=== PATIENT | male | born 1965 | race Caucasian/White ===

== ENCOUNTER 2016-12-27 13:41 | Inpatient (IN) | payer BC ==
[~2016-12-27] VITALS: Ht 175.3 cm; Wt 115.9 kg
--- NOTE | ~2016-12-27 | OP ---
PATIENT NAME: NIYAH EDUARDO MEDICAL RECORD: [id number] :69 LOCATION:[facility]1220 ADMISSION DATE:12/27/16 SURGEON: AFTAB SOW MD DATE OF OPERATION: 12/28/2016 PREOPERATIVE DIAGNOSIS: Ventral hernia, incarcerated. POSTOPERATIVE DIAGNOSES: 1. Incarcerated umbilical hernia. 2. Incarcerated ventral hernia. PROCEDURE: Laparoscopic incarcerated ventral and umbilical hernia repairs with mesh. This was the Ventralight ST mesh with the Echo PS positioning system. SURGEON: Aftab Sow MD LOADER ENGINEER: None. BLOOD LOSS: Minimal. ANESTHESIA: General. COMPLICATIONS: None. The risks, possible complications, and alternatives to the procedure were explained to the patient. He elects to proceed. The discussion specifically included, but was not limited to, bleeding requiring emergency reoperation, infection, intestinal injury. OPERATIVE COURSE: The patient was conveyed to the operating room electively on 12/28/2016. General anesthesia was induced by the anesthesia staff. The abdomen was sterilely prepped and draped. A skin incision was accomplished in the left upper quadrant. A Veress needle was inserted. CO2 insufflation was begun. Once a sufficient pneumoperitoneum had been achieved, a 12-mm trocar was inserted in the left upper quadrant. Under direct internal vision utilizing a television camera, a 5-mm trocar was inserted in the left side of the abdomen. Two 5-mm trocars were inserted in the right side of the abdomen. During insertion of the Veress needle and all trocars, there appeared to have been no injury to the bowels, any intraperitoneal or retroperitoneal structures. I took down the falciform ligament and also the anterior portion of the triangular ligament of the liver with the Harmonic scalpel. A prevesicular flap was created with the Harmonic scalpel as well. Intravenous methylene blue was given. I saw no evidence of methylene blue and therefore, no evidence of a bladder injury. I then cleaned some preperitoneal fat from around the hernia defects. The hernia defects were identified. The preperitoneal adipose tissue that was incarcerated within these hernias was reduced in its entirety. Some nonviable adipose tissue was placed within a bag retrieval device and was withdrawn through the 12-mm trocar site. The Ventralight ST mesh was then hydrated. It was rolled up and advanced down through the 12-mm trocar site. A small skin incision was accomplished between the 2 hernia defects. I advanced a laparoscopic suture grasper. I grasped the OPERATIVE REPORT [id number] NIYAH EDUARDO tail of the inflation device. I brought this out through the anterior abdominal wall. I cut the tail. It was attached to the inflation device and inflated. I positioned the mesh in the correct orientation. I then performed a circumferential tacking utilizing 2 different tackers including the SorbaFix tacker. Once I was satisfied with the repair, I reduced the Echo PS positioning system in its entirety. I irrigated and aspirated. There was no bleeding even at low pressure of 8. I pulled the omentum down over the small bowel to prevent a small-bowel obstruction from recurring. The 12-mm trocar site was closed with a single 0 Vicryl suture. The other trocars were removed. The skin incisions were closed with interrupted intracuticular 3-0 Vicryls. Sterile dressings were then applied. The patient was then extubated and conveyed to the post-anesthesia care unit where he was in stable condition. The size of the mesh used was 6 inches x 8 inches. TRANSINT:[id number] Voice Confirmation ID: [id number] DOCUMENT ID: [id number] AFTAB SOW MD CC: [id number] DICTATION DATE: 12/28/16 1356 COCOA BEAN ROASTER: 12/28/16 1718 [facility] [address] [place] [address]
[2016-12-27 14:37] LABS: BASOPHILS 0.2 % (0-2); EOSINOPHILS 2.3 % (0-7); HEMATOCRIT 55.4 % (42.0-54.0); IMMATURE GRANULOCYTES 0.4 % (0-5); LYMPHOCYTES 17.2 % (15-50); MCH 30.2 pg (26.0-34.0); MCHC 34.3 g/dL (31.0-37.0); MCV 87.9 fL (80.0-100.0); MONOCYTES 8.3 % (2-11); NEUTROPHILS 71.6 % (40-80); RDW 13.5 % (11.5-14.5); WBC 13.3 10x3/uL (4.8-10.8)
[2016-12-27 14:46] LABS: PLATELET COUNT 211 10x3/uL (130-400)
--- NOTE | 2016-12-27 20:52 | NUR ---
RECEIVED PT FROM ER VIA WHEELCHAIR TO ROOM 1220. INTRODUCED SELF. ROUTINE INITIAL ASSESSMENT AND HISTORY DONE. ADMITTING Dx: VENTRAL HERNIA. ORIENTED TO ROOM AND BED CONTROLS. PLAN OF CARE INITIATED.
[2016-12-27 20:57] VITALS: BP 136/78; Ht 175.3 cm; Wt 115.9 kg
--- NOTE | 2016-12-27 22:00 | NUR ---
DR SERRANO PAGED REGARDING DIET FOR PT TONIGHT BEFORE MIDNIGHT
--- NOTE | 2016-12-27 22:45 | NUR ---
DR SERRANO PAGED AGAIN
--- NOTE | 2016-12-27 23:05 | NUR ---
SALINE LOCK CONVERTED TO IV INFUSING NS AT 125 ML/HR PER MD ORDERS, SEE EMAR, VS OBTAINED, SCD'S APPLIED AND WORKIING PROPERLY, PT INFORMED THAT THE DOCTOR HAS NOT CALLED BACK REGARDING DIET, PT VERBALIZES UNDERSTANDING
[2016-12-27 23:06] VITALS: BP 129/76
--- NOTE | 2016-12-27 23:10 | NUR ---
CONSENTS SIGNED AND WITNESSED
--- NOTE | 2016-12-27 23:35 | NUR ---
PT INFORMED THAT I HAVE NOT HEARD BACK FROM THE DOCTOR YET, PT STATES "DARN, IF I KNEW THAT I WAS GOING TO HAVE SURGERY, I WOULD OF EATEN", I INFORMED PT THAT IF I HEAR BACK FROM HIM BEFORE MIDNIGHT, I WOULD LET HIM KNOW, PT VERBALIZES UNDERSTANDIUNG, PT DENIES NEEDS OR PAIN AT THIS TIME
[2016-12-28] VITALS (12 sets, daily range): BP systolic 111–147; BP diastolic 64–89
--- NOTE | 2016-12-28 00:24 | NUR ---
PT RESTING WITH EYES CLOSED, RESP QUIET, PT USING OWN CPAP MACHINE, NO DISTRESS NOTED, LEFT UNDISTURBED AT THIS TIME
--- NOTE | 2016-12-28 03:11 | NUR ---
PT RESTING WITH EYES CLOSED, RESP QUIET, PT USING OWN CPAP MACHINE, LEFT UNDISTURBED AT THIS TIME
--- NOTE | 2016-12-28 05:28 | NUR ---
PT RESTING WITH EYES CLOSED, AROUSES TO SOFT VERBAL STIMULATION, VS OBTAINED, PT DENIES PAIN OR NEED FOR NAVAL AIRCREWMAN AVIONICS, SCD'S CONTINUE ON AND WORKING PROPERLY, DENIES NEEDS AT THIS TIME
--- NOTE | 2016-12-28 07:30 | NUR ---
PT IS RECEIVED THIS AM LYING IN BED, RESTING. PT STATES THAT HE IS SUPPOSE TO GO TO SURGERY THIS AM FOR UMBILICAL HERNIA REPAIR. STATES DR DID NOT TELL HIM IF IT WOULD BE DONE LAPAROSCOPICALLY OR OPEN. CONSENTS HAVE BEEN SIGNED. GEN- AWAKE AND ALERT- LUNGS CLEAR. HEART- RRR. ABD- SOFT, NT, BS +. UNABLE TO PALPATE HERNIA DUE TO PT LYING DOWN. EXT- NO EDEMA. BEED IS LOW, SIDE RAILS UP X 2 AND CALL LIGHT IN REACH. IV NOTED LEFT HAND PATENT WITH NS INFUSING AT 125 CC/HR.
[2016-12-28 07:42] LABS: BASOPHILS 0.2 % (0-2); EOSINOPHILS 2.6 % (0-7); HEMATOCRIT 53.8 % (42.0-54.0); HEMOGLOBIN 18.1 g/dL (13.5-17.5); IMMATURE GRANULOCYTES 0.3 % (0-5); MCH 29.8 pg (26.0-34.0); MCHC 33.6 g/dL (31.0-37.0); MCV 88.5 fL (80.0-100.0); MONOCYTES 7.8 % (2-11); NEUTROPHILS 66.1 % (40-80); PLATELET COUNT 214 10x3/uL (130-400); RBC 6.08 10x6/uL (4.20-6.10); RDW 13.8 % (11.5-14.5); WBC 12.7 10x3/uL (4.8-10.8)
[2016-12-28 07:55] LABS: APTT 29.7 SECONDS (22.8-39.4); CALC OSMOLALITY 283 mosm/kg (275-300); CALCIUM 7.9 mg/dL (8.5-10.1); CARBON DIOXIDE 25.8 mmol/L (21.0-32.0); CHLORIDE - SERUM 106 mmol/L (98-107); CREATININE - SERUM 1.1 mg/dL (0.6-1.3); GLUCOSE 76 mg/dL (74-106); INR 0.99 (0.85-1.17); POTASSIUM - SERUM 3.9 mmol/L (3.5-5.1); SODIUM 142 mmol/L (136-145); UREA NITROGEN 17 mg/dL (7-18); eGFR NON AFRICAN AMERICAN 75 mL/min (90-120)
--- NOTE | 2016-12-28 09:00 | NUR ---
PT WAS GIVEN PREOP MEDS ORDERED.
--- NOTE | 2016-12-28 09:15 | NUR ---
SURGERY CAME AND GOT PT BY RYLEY. BELONGINGS WERE GATHERED AND PUT BEHIND THE NURSING DESK FOR HIS TO RECEIVER SETTER.
--- NOTE | 2016-12-28 13:45 | NUR ---
PT WAS RECEIVED FROM RECOVERY POST OP HERNIA REPAIR. HE IS DROWSY BUT EASILY AWAKENS. IV PATENT LEFT WRIST. PT TRANSFERRED TO BED FROM STRETCHER. PT TOLERATED WELL. VS STABLE. AND MOTHER AT HIS BEDSIDE.
--- NOTE | 2016-12-28 14:20 | NUR ---
DISCHARGE INSTRUCTIONS DISCUSSED WITH PT. HANDOUTS GIVEN WELL VERBALLY DISCUSSED. FU APPT AND PRESCRIPTIONS GIVEN. DEMERAOL 50 MG 1 PO Q 4 R # 20 NO REFILLS AND MOTRIN 600 MG Q 6 H.
--- NOTE | 2016-12-28 14:24 | NUR ---
I CALLED DR SOW FOR ORAL PAIN MED. HE ORDERED NORCO 10/325 Q 4 HR PRN PAIN.
--- NOTE | 2016-12-28 14:52 | NUR ---
PT C/O PAIN AND A LITTLE NAUSEA. HE REQUEST MEDICATION. NORCO 10/325 AND ZOFRAN WERE GIVEN. AT BEDSIDE.
--- NOTE | 2016-12-28 16:00 | NUR ---
PT TRIED TO VOID. PASSED A SMALL CLOT OF BLOOD AND A FEW DROPS OF URINE. ENCOURAGEDTO DRINK LIQUIDS. GAVE HIM SOME WATER AND LEMON CONFEDERATED YAKAMA SODA.
--- NOTE | 2016-12-28 16:48 | NUR ---
PT IS STILL UNABLE TO VOID. HE IS HAVING SOME DISCOMFORT.
--- NOTE | 2016-12-28 18:27 | NUR ---
EDITHRN FROM ICU IS HERE TO PLACE CATH. UNABLE TO GET REGULAR SIZE SO HE HAS A SAMALL COUDE CAT. URINE IS WITH METHYLENE BLUE NOTED. PT IS ABLE TO FEEL SOME RELIEF.
--- NOTE | 2016-12-28 19:25 | NUR ---
ASSESSMENT PER FLOW SHEET, VS OBTAINED, IV IN LEFT HAND INTACT WITH NO REDNESS OR EDEMA INFUSING NS AT 100ML/HR, 5 LAP INC WITH STERI STRIPS DRY AND INTACT, GARCIA CATH IN PLACE DRAINING METHYLINE BLUE URINE, PT RATES INC PAIN 09/18, STATES "I FEEL BETTER NOW THAT I DON'T HAVE THAT FEELING LIKE I CAN'T PEE", INFORMED PT THAT SCD'S WILL HAVE TO BE PLACED ON AT BEDTIME, PT VERBALIZES UNDERSTANDING, PT DENIES NEEDS AT THIS TIME, TRASH REMOVED
--- NOTE | 2016-12-28 20:16 | NUR ---
PT LOOKING AT CELL PHONE, DENIES NEEDS AT THIS TIME
--- NOTE | 2016-12-28 21:06 | NUR ---
NEW BAG OF NS HUNG PER MD ORDERS, ASSISTED PT IN POSITING SELF IN BED, ICE PACK AND SMALL SPLINT PILLOW PROVIDED, SCD'S PLACED ON AND WORKING PROPERLY, PT RATES INC PAIN 09/18, INFORMED PT THAT I WILL ADM PAIN MED WHEN DUE, PT VERBALIZES UNDERSTANDING, DENIES NEEDS AT THIS TIME
--- NOTE | 2016-12-28 22:09 | NUR ---
PT AWAKE, ADM NORCO PO PER MD ORDERS WITH FRESH H20, VS OBTAINED, EXTRA PILLOW PROVIDED, SCD'S CONTINUE ON AND WORKING PROPERLY, EMPTIED GARCIA CATH, SEE FLOW SHEET, PT DENIES FURTHER NEEDS
--- NOTE | 2016-12-29 00:40 | NUR ---
PT RESTING WITH EYES CLOSED, RESP QUIET, NO DISTRESS NOTED, PT USING OWN CPAP MACHINE, LEFT UNDISTURBED AT THIS TIME
[2016-12-29 02:10] VITALS: BP 118/76
--- NOTE | 2016-12-29 02:12 | NUR ---
PT AWAKE, VS OBTAINED, ADM NORCO PO PER MD ORDERS, SEE EMAR, PT DENIES FURTHER NEEDS
--- NOTE | 2016-12-29 04:30 | NUR ---
PT RESTING WITH EYES CLOSED, RESP QUIET, NO DISTRESS NOTED, PT USING OWN CPAP, LEFT UNDISTURBED AT THIS TIME, SCD'S ON AND WORKING PROPERLY
--- NOTE | 2016-12-29 06:10 | NUR ---
PT RESTING WITH EYES CLOSED, AROUSES TO SOFT VERBAL STIMULATION, ADM NORCO PO PER MD ORDERS FOR PAIN, SEE EMAR, GARCIA CATH EMPTIED, FRESH H20 SERVED, PT REQUESTED SCD'S OFF AT THIS TIME, PT DENIES FURTHER NEEDS
--- NOTE | 2016-12-29 07:03 | NUR ---
SHIFT REPORT TO CHRISTIANO COOPER RN
--- NOTE | 2016-12-29 07:15 | NUR ---
PT IS LYING IN BED. HE STATES THAT HE IS HURTING MORE THAN HE THOUGHT HE WOULD. HE IS NOT PASSING GAS. HE DENIES NAUSEA OR VOMITING. HE WAS ENCOURAGED TO GET UP AND AMBULATE. GEN- AWAKE AND ALERT. LUNGS- CLEAR.HEAR- RRR. ABD- WITH SOME DISTENTION. FEW BS. 5 SMALL INCISIONS FROM LAP HERNIA REPAIR WITH STERI STRIPS INTACT. CLEAN AND DRY. EXT- NO EDEMA. GARCIA INTACT WITH LIGHT BLUISH GREEN URINE. GARCIA PATENT. IV L WRIST PATENT. WITH NS INFUSING AT 50 CC/HR. BED IS LOW, SIDE RAILS UP X 2 AND CALL LIGHT IN REACH.
[2016-12-29 07:30] VITALS: BP 120/75
--- NOTE | 2016-12-29 08:24 | NUR ---
PT RESTING IN BED. HE OFFERS NO COMPLAINTS.
--- NOTE | 2016-12-29 11:30 | NUR ---
I CALLED DR SOW ABOUT PT NOT BEING ABLE TO HAVE A BOWEL MOVEMENT. HE ORDERED MAG CITRATE 1/2 A BOTTLE IF NO RESULTS IN 30 MIN WILL GIVE THE REST.
--- NOTE | 2016-12-29 11:32 | NUR ---
PT IS C/O NOT BEING ABLE TO GO TO THE BATHROOM. HE REQUEST A STOOL SOFTENER. ENCOURAGED PT TO WALK IN HALLWAY.
[2016-12-29 12:10] VITALS: BP 120/69
--- NOTE | 2016-12-29 12:18 | NUR ---
PT GIVEN 1/2 BOTTLE OF MAG CITRATE. IF NO RESULTS IN 30 MIN I WILL GIVE HIM THE REST.
--- NOTE | 2016-12-29 13:57 | NUR ---
DR SOW IS HERE TO SEE PT. DR SOW ORDERED LOVENOX SUBCU NOW AND DILAUDID STORAGE ARCHITECT. CONSULT DR GÓMEZ FOR EVAL.
--- NOTE | 2016-12-29 14:29 | NUR ---
DR GÓMEZ INFORMED ABOUT CONSULT. DISCUSSED PT AND NEW ORDERS WITH HIM. HE WANTS TO HOLD OFF ON FRIT COATER FOR NOW. HE ORDERED 2 DUCOLAX SUPP TO BE GIVEN TOGETHER.
[2016-12-29 16:54] LABS: HEMATOCRIT 57.4 % (42.0-54.0); HEMOGLOBIN 19.8 g/dL (13.5-17.5); MCH 30.4 pg (26.0-34.0); MCHC 34.5 g/dL (31.0-37.0); MEAN PLATELET VOLUME 9.8 fL (7.4-10.4); PLATELET COUNT 225 10x3/uL (130-400); RBC 6.52 10x6/uL (4.20-6.10); RDW 13.7 % (11.5-14.5)
[2016-12-29 17:12] LABS: ALBUMIN 3.8 g/dL (3.4-5.0); ALKALINE PHOSPHATASE 55 U/L (46-116); ALT (SGPT) 31 U/L (10-68); BILIRUBIN - TOTAL 0.73 mg/dL (0.2-1.3); CALC OSMOLALITY 276 mosm/kg (275-300); CALCIUM 8.6 mg/dL (8.5-10.1); CARBON DIOXIDE 22.8 mmol/L (21.0-32.0); CHLORIDE - SERUM 103 mmol/L (98-107); CREATININE - SERUM 1.1 mg/dL (0.6-1.3); GLUCOSE 91 mg/dL (74-106); POTASSIUM - SERUM 4.3 mmol/L (3.5-5.1); PROTEIN - SERUM 7.3 g/dL (6.4-8.2); SODIUM 139 mmol/L (136-145); eGFR NON AFRICAN AMERICAN 75 mL/min (90-120)
[2016-12-29 17:18] LABS: UREA NITROGEN 10 mg/dL (7-18)
[2016-12-29 17:39] LABS: EOSINOPHILS 4 % (0-7); LYMPHOCYTES 10 % (15-50); MONOCYTES 2 % (2-11); NEUTROPHILS 84 % (40-80); PLATELET ESTIMATE NORMAL
--- NOTE | 2016-12-29 17:48 | NUR ---
PT C/O NAUSEA. GIVEN ZOFRAN IV. FLUSHED WITH NS.
[2016-12-29 19:00] VITALS: BP 135/78
--- NOTE | 2016-12-29 19:29 | NUR ---
SALINE LOCK CONVERTED TO IV, NS HUNG IV INFUSING VIA PUMP AT 125 ML/HR AND DILAUDID PHOTOGRAMMETRIC ENGINEER INITIATED PER MD ORDERS, SEE EMAR, PT INST ON AND VERBALIZES UNDERSTANDING OF PHOTOGRAMMETRIC ENGINEER, PT PUSHES BUTTON AT THIS TIME, RADHA CORDON RN FROM ICU IN ROOM TO PLACE NGT PER MD ORDERS, PT'S TEARY EYED, THIS RN ESCORTED PT'S OUT OF ROOM TO TALK TO HER AT THIS TIME
--- NOTE | 2016-12-29 19:50 | NUR ---
RADHA CORDON RN FROM ICU REPORTS THAT PT DID NOT TOLERATE NGT, DID PLACE IT WITH IMMEDIATE RETURN OF 1000MLS OF GREENISH BROWN BILE, BUT PT HAS BAD GAG REFLEXES AND PULLED TUBE OUT, SHE REPORTS THAT PT THEN VOMITED APPROXIMATELY 2000 MLS OF EMESIS, REPORTS TO CALL DR GÓMEZ TO LET HIM KNOW, RADHA CORDON, SUSY CLEANS PT UP
--- NOTE | 2016-12-29 19:54 | NUR ---
STEPHAN CARBAJAL NP PAGED
--- NOTE | 2016-12-29 20:00 | NUR ---
RADHA CORDON RN FROM ICU STATES "I THINK YOU SHOULD LET DR SOW KNOW ABOUT THIS NGT", INFORMED HER THAT I WILL CALL
--- NOTE | 2016-12-29 20:02 | NUR ---
PT UP AMB IN [place], GAIT STEADY, AT SIDE
--- NOTE | 2016-12-29 20:03 | NUR ---
DR MAGI AHN
--- NOTE | 2016-12-29 20:07 | NUR ---
DR SOW CALLS UNIT, REPORT OF NGT, IMMEDIATE RETURN OF BILE, PT VOMITING, PT NOT TOLERATING NGT, AND MID LEVEL PROJECT MANAGER, ORDERS RECEIVED FOR GASTROGRAFIN AND SMALL BOWEL FOLLOW UP IN AM, LEAVE NGT OUT TONIGHT AND CALL HIM OF ANY CHANGES
--- NOTE | 2016-12-29 20:11 | NUR ---
STEPHAN CARBAJAL, VAN LOADER CALLS UNIT, REPORT TO HER THAT I ALREADY SPOKE TO DR SOW AND NEED ORDER FOR CHLORESEPTIC, ORDER RECEIVED
--- NOTE | 2016-12-29 20:20 | NUR ---
PT BACK TO ROOM AT THIS TIME
--- NOTE | 2016-12-29 20:25 | NUR ---
REPORT CALLED TO SUSY CANO ON MED SURGE, PT BEING TRANSFERRED TO 3622
[2016-12-29 20:30] VITALS: BP 126/84
--- NOTE | 2016-12-29 20:30 | NUR ---
ASSESSMENT PER FLOW SHEET, VS OBTAINED, IV IN LEFT HAND INTACT WITH NO REDNESS OR EDEMA, NS AND DILAUDID CONTINUE AT THIS TIME, 4 LAP AND 1 UMB INC WITH STERI STRIPS DRY AND INTACT, PT STATES "I DO FEEL A LOT BETTER AFTER I THREW UP", PT INFORMED THAT HE WILL BE TRANSFERRED UPSTAIRS, PT VERBALIZES UNDERSTANDING
--- NOTE | 2016-12-29 20:50 | NUR ---
PT TRANSFERRED TO ROOM 2217, PT REQUESTED TO AMB TO NEW ROOM, PT'S , FAMILY MEMBERS AND ALL BELONGING TRANSFERRED WITH PT, PT ORIENTED TO ROOM, BED IN LOW POSITION, SIDE RAILS X 2, CALL LIGHT IN REACH, SUSY CANO ON MED SURGE INFORMED THAT PT IS IN ROOM AT THIS TIME
--- NOTE | 2016-12-29 21:00 | NUR ---
REC'D TO ROOM 2217 FROM W/S PER W/C A 51 Y/O W/M PER SERVICES DR. SOW AND DR. GÓMEZ POST OP LAP HERNIA REPAIR DONE ON 12/28/16. PT HAS LAP SITES X5 TO ABDOMEN C/D/I. IV PATENT LEFT HAND WITH NS AT 125CC'S/HR CHEMICAL SUPERVISOR OF DILAUDID IN USE WITH SETTIGS AT 0.2MG Q10MIN W/4MG Q4H L/O. GARCIA TO BSD WITH GREEN URINE NOTED. PT NPO EXCEPT FOR ICE CHIPS. AT BEDSIDE.
--- NOTE | 2016-12-29 22:00 | NUR ---
MEDS GIVEN PER MAR.
--- NOTE | 2016-12-30 | NUR ---
IN BED SR UP X2 CALL LIGHT WITHIN REACH PATIENT HAS HIS CPAP ON. TEMP=99.2. PATIENT WORRIED ABOUT INFECTION INFORMED ABOUT LOW GRADE TEMPS SOMETIMES IS COMMON. PT WAS GIVEN INCENTIVE SPIROMETER AND SHOWN HOW TO USE TO HELP EXPAND LUNGS AND HELP PREVENT PNEUMONIA. PATIENT GOT UP TO 3500. INFORMED PATIENT WILL BE HAVING SOME XRAYS IN AM.
--- NOTE | 2016-12-30 02:30 | NUR ---
EYES CLOSED RESPIRATIONS WITH EASE AND UNLABORED.
--- NOTE | 2016-12-30 03:45 | NUR ---
NEW IV BAG HUNG TO PRESENT IV SITE.
[2016-12-30 04:00] VITALS: BP 140/72
[2016-12-30 05:58] LABS: BASOPHILS 0.1 % (0-2); EOSINOPHILS 0.4 % (0-7); HEMATOCRIT 51.8 % (42.0-54.0); HEMOGLOBIN 17.4 g/dL (13.5-17.5); IMMATURE GRANULOCYTES 0.2 % (0-5); LYMPHOCYTES 9.8 % (15-50); MCH 29.7 pg (26.0-34.0); MCHC 33.6 g/dL (31.0-37.0); MCV 88.5 fL (80.0-100.0); MEAN PLATELET VOLUME 9.6 fL (7.4-10.4); MONOCYTES 10.8 % (2-11); NEUTROPHILS 78.7 % (40-80); PLATELET COUNT 202 10x3/uL (130-400); RBC 5.85 10x6/uL (4.20-6.10); RDW 13.9 % (11.5-14.5)
[2016-12-30 06:29] LABS: ALKALINE PHOSPHATASE 41 U/L (46-116); CALC OSMOLALITY 276 mosm/kg (275-300); CALCIUM 7.9 mg/dL (8.5-10.1); CARBON DIOXIDE 24.5 mmol/L (21.0-32.0); CHLORIDE - SERUM 105 mmol/L (98-107); GLUCOSE 83 mg/dL (74-106); POTASSIUM - SERUM 3.7 mmol/L (3.5-5.1); PROTEIN - SERUM 6.3 g/dL (6.4-8.2); SODIUM 139 mmol/L (136-145); UREA NITROGEN 12 mg/dL (7-18); eGFR NON AFRICAN AMERICAN 84 mL/min (90-120)
[2016-12-30 06:33] LABS: ALT (SGPT) 20 U/L (10-68)
--- NOTE | 2016-12-30 06:45 | NUR ---
NO CHANGES IN ASSESSMENT
--- NOTE | 2016-12-30 07:50 | NUR ---
RECIEVED PT DURING WALKING ROUNDS, PT EXPERIENCING NAUSEA, ZOFRAN GIVEN PER ORDER. ASSESSMENT DONE PER FLOWSHEET. BED IN LOW POSITION AND CALL LIGHT WITHIN REACH. WILL CONTINUE TO MONITOR.
[2016-12-30 09:46] VITALS: BP 150/86
[2016-12-30 12:33] VITALS: BP 118/74
--- NOTE | 2016-12-30 15:00 | NUR ---
PT VOMMITTING GREEN BILE, REGLAN GIVEN PER ORDER. WILL CONTINUE TO MONITOR.
[2016-12-30 16:13] VITALS: BP 118/67
[2016-12-30 17:59] VITALS: BP 120/64
--- NOTE | 2016-12-30 20:00 | NUR ---
ASSESSMENT PER FLOWSHEET. LAP SITES TO ABDOMEN X5 C/D/I. GARCIA TO BSDRAIANGE WITH GREEN URINE. IV PATENT LEFT HAND OF NS AT 125CC'S/HR SOTE CLEAR. PATIENT PASSING GAS AND HAS BEEN HAVING LOOSE YELLOW/GREEN STOOLS.
--- NOTE | 2016-12-30 22:00 | NUR ---
MEDS GIVEN PER JUN. AMBULATED IN HALLWAYS.
--- NOTE | 2016-12-30 22:30 | NUR ---
IN BED WITH HOME CPAP ON. HOB UP 30 DEGREES.
--- NOTE | 2016-12-31 | NUR ---
EYES CLOSED RESPIRATIONS WITH EASE AND UNLABORED.
[2016-12-31 00:40] VITALS: BP 157/81
--- NOTE | 2016-12-31 02:30 | NUR ---
RETING QUIETLY DENIES NEEDS.
--- NOTE | 2016-12-31 04:15 | NUR ---
UP AD TATYANA IN ROOM HAD LOOSE YELLOW GREEN STOOL. ORAL CARE SELF CARE DONE REQUESTING SPRITE TO DRINK.
[2016-12-31 04:56] VITALS: BP 107/54
[2016-12-31 05:02] LABS: BASOPHILS 0.2 % (0-2); EOSINOPHILS 0.7 % (0-7); HEMATOCRIT 47.5 % (42.0-54.0); HEMOGLOBIN 15.8 g/dL (13.5-17.5); IMMATURE GRANULOCYTES 0.3 % (0-5); LYMPHOCYTES 11.8 % (15-50); MCH 29.7 pg (26.0-34.0); MCHC 33.3 g/dL (31.0-37.0); MCV 89.3 fL (80.0-100.0); MEAN PLATELET VOLUME 9.8 fL (7.4-10.4); MONOCYTES 9.3 % (2-11); NEUTROPHILS 77.7 % (40-80); PLATELET COUNT 197 10x3/uL (130-400); RBC 5.32 10x6/uL (4.20-6.10); WBC 13.6 10x3/uL (4.8-10.8)
[2016-12-31 05:21] LABS: ALBUMIN 2.6 g/dL (3.4-5.0); ALKALINE PHOSPHATASE 31 U/L (46-116); ALT (SGPT) 19 U/L (10-68); BILIRUBIN - TOTAL 0.59 mg/dL (0.2-1.3); CALC OSMOLALITY 275 mosm/kg (275-300); CALCIUM 7.1 mg/dL (8.5-10.1); CARBON DIOXIDE 22.3 mmol/L (21.0-32.0); CHLORIDE - SERUM 105 mmol/L (98-107); CREATININE - SERUM 0.9 mg/dL (0.6-1.3); GLUCOSE 87 mg/dL (74-106); POTASSIUM - SERUM 3.8 mmol/L (3.5-5.1); SODIUM 138 mmol/L (136-145); UREA NITROGEN 14 mg/dL (7-18); eGFR NON AFRICAN AMERICAN > 90 mL/min (90-120)
--- NOTE | 2016-12-31 06:06 | NUR ---
NO CHANGES IN ASSESSMENT
[2016-12-31 08:06] VITALS: BP 114/63
--- NOTE | 2016-12-31 08:20 | NUR ---
AWAKE AND ALERT. ORIENTED X3. NO C/O AT THIS TIME. LUNGS ARE CLEAR BILATERALLY, NO COUGH NOTED. SKIN IS INTACT WITHOUT REDNESS EXCEPT 5 SMALL INSERTION SITES TO ABDOMEN WHICH ARE CLEAN AND DRY. GARCIA PATENT WITH BLUEISH GREEN OUTPUT. IV TO LEFT HAND IS PATNET WITHOUT REDNESS AT INSERTION SITE. DENIES NEED.
--- NOTE | 2016-12-31 09:30 | NUR ---
ATE ABOUT ONE QUARTER OF BREAKFAST. NO INCREASE IN PAIN OR NAUSEA AFTER EATING.
[2016-12-31 12:07] VITALS: BP 107/63
--- NOTE | 2016-12-31 12:15 | NUR ---
LUNCH SERVED IN ROOM. FEEDS SELF. REPORTS NO NAUSEA OR INCREASED PAIN AFTER EATING.
[2016-12-31 15:35] VITALS: BP 125/72
--- NOTE | 2016-12-31 19:00 | NUR ---
ATE ABOUT HALF OF SUPPER WITHOUT C/O PAIN OR INCREASED PAIN. UP IN HALLWAY PER SELF AMBULATED.
[2016-12-31 20:00] VITALS: BP 102/65; BP 12/65
[2017-01-01 00:11] VITALS: BP 116/69
[2017-01-01 04:00] VITALS: BP 116/69
[2017-01-01 05:27] LABS: BASOPHILS 0.2 % (0-2); EOSINOPHILS 1.8 % (0-7); HEMOGLOBIN 16.6 g/dL (13.5-17.5); IMMATURE GRANULOCYTES 0.2 % (0-5); LYMPHOCYTES 8.6 % (15-50); MCH 30.1 pg (26.0-34.0); MCHC 33.9 g/dL (31.0-37.0); MCV 88.9 fL (80.0-100.0); MEAN PLATELET VOLUME 9.9 fL (7.4-10.4); MONOCYTES 10.7 % (2-11); NEUTROPHILS 78.5 % (40-80); PLATELET COUNT 206 10x3/uL (130-400); RBC 5.51 10x6/uL (4.20-6.10); RDW 13.8 % (11.5-14.5); WBC 10.4 10x3/uL (4.8-10.8)
[2017-01-01 06:05] LABS: ALBUMIN 2.7 g/dL (3.4-5.0); ALKALINE PHOSPHATASE 35 U/L (46-116); ALT (SGPT) 19 U/L (10-68); BILIRUBIN - TOTAL 0.56 mg/dL (0.2-1.3); CALC OSMOLALITY 267 mosm/kg (275-300); CALCIUM 7.1 mg/dL (8.5-10.1); CHLORIDE - SERUM 104 mmol/L (98-107); CREATININE - SERUM 0.8 mg/dL (0.6-1.3); GLUCOSE 85 mg/dL (74-106); POTASSIUM - SERUM 3.7 mmol/L (3.5-5.1); PROTEIN - SERUM 6.1 g/dL (6.4-8.2); SODIUM 135 mmol/L (136-145); UREA NITROGEN 11 mg/dL (7-18); eGFR NON AFRICAN AMERICAN > 90 mL/min (90-120)
--- NOTE | 2017-01-01 07:49 | NUR ---
AWAKE AND ALERT. ORIENTED X3. NO C/O THIS AM. ANXIOUS TO GET TO GO HOME. LUNGS ARE CLEAR BILATERALLY, NO COUGH NOTED. SKIN IS INTACT WITHOUT REDNESS EXCEPT 5 SMALL INSERTION SITES TO ABDOMEN WHICH ARE CLEAN AND DRY. DENIES NEEDS. GARCIA PATENT WITH GREENISH URINE. CLAMPED AT THIS TIME. WILL MONITOR.
[2017-01-01 08:03] VITALS: BP 127/72
--- NOTE | 2017-01-01 09:15 | NUR ---
GARCIA UNCLAMPED WITH C/O NEED TO VOID. RETURNED 350CC CLEAR YELLOW URINE. RECLAMPED
--- NOTE | 2017-01-01 10:30 | NUR ---
REPORTS NEED TO VOID AGAIN. GARCIA D/C WITH TIP INTACT WITHOUT COMPLICATIONS. VOIDED 350CC CLEAR YELLOW URINE IMMEDIATELY. WILL CONTINUE TO MONITOR.
--- NOTE | 2017-01-01 10:30 | NUR ---
VOIDED 200 CC CLEAR YELLOW URINE WITHOUT DIFFICULTY. WILL CONTINUE TO MONITOR.
--- NOTE | 2017-01-01 11:50 | NUR ---
VOIDED 300CC CLEAR YELLOW URINE WITHOUT DIFFICULTY.
--- NOTE | 2017-01-01 12:30 | NUR ---
ATE ALMOST ALL OF LUNCH. NO C/O PAIN OR DISCOMFORT. CONTINUES TO VOID WITHOUT DIFFICULTY.
--- NOTE | 2017-01-01 15:20 | NUR ---
SPOKE WITH DR. SOW RE DISCHARGE. NEW ORDERS RECEIVED. PATIENT VERY HAPPY TO GET TO GO HOME.
[2017-01-01] MEDS ORDERED: ACETAMINOPHEN325 MG PO (15:21)
--- NOTE | 2017-01-01 15:47 | NUR ---
DISCHARGED TO HOME AMBULATORY PER SELF. DISCHARGE INSTRUCTIONS GIVEN BOTH VERBALLY AND WRITTEN. ALL QUESTIONS ANSWERED. PATIENT VERBALIZED UNDERSTANDING OF SAME. NO NEW PRESCRIPTIONS NEEDED.
== END 2017-01-01 15:47 | disposition home or self-care (01) | DRG 354 ==
LOC: OBSVTIME → D.ER 13:41 → D.WS 19:17 → D.ER 19:30 → D.MS 19:30 → OBSVTIME 12-28 16:42 → D.MS 12-29 20:50 → D.WS 12-29 20:50 → D.MS 12-29 20:50
PROVIDERS: Emergency Medicine; Family Medicine; Surgery; ADMIT Surgery
PROC: 0WUF4JZ Supplement Abdominal Wall with Synthetic Substitute, Percutaneous Endoscopic Approach (ICD-10-PCS; 2016-12-28)
PROC: 0WUF4JZ Supplement Abdominal Wall with Synthetic Substitute, Percutaneous Endoscopic Approach (ICD-10-PCS; principal; 2016-12-28 09:15)
DX: K42.0 Umbilical hernia with obstruction, without gangrene (principal); F17.203 Nicotine dependence unspecified, with withdrawal; K43.6 Other and unspecified ventral hernia with obstruction, without gangrene; R10.9 Unspecified abdominal pain; G47.33 Obstructive sleep apnea (adult) (pediatric); K21.9 Gastro-esophageal reflux disease without esophagitis; R09.02 Hypoxemia

== ENCOUNTER → 2017-03-14 17:48 | Outpatient (CLI) | payer BC ==
[2016-12-27 20:57] VITALS: BMI 37.7
[~2017-03-14 17:48] MED LIST: ACETAMINOPHEN325 MG PO
[2017-03-14 18:18] LABS: CHOL - HDL RATIO 7.8 ratio (2.3-4.9); LDL-HDL RATIO 5.6 ratio (1.5-3.5)
== END | disposition home or self-care (01) ==
LOC: D.LABREF 17:48
PROVIDERS: Internal Medicine Cardiovascular Disease
DX: I10 Essential (primary) hypertension (principal)

== ENCOUNTER → 2017-03-21 08:01 | Outpatient (CLI) | payer BC ==
[2016-12-27 20:57] VITALS: BMI 37.7
--- NOTE | 2017-03-26 08:18 | EC ---
PATIENT:NIYAH EDUARDO DATE OF SERVICE: 03/21/17 SEX: M MEDICAL RECORD: [id number] DATE OF : 69 [facility] AGE OF PATIENT: 51 ADMISSION DATE: 03/21/17 REFERRING PHYSICIAN: INTERPRETING PHYSICIAN: CROW FLOOD MD ECHOCARDIOGRAM REPORT ECHO CHARGES 4 ECHO COMPLETE CLINICAL DIAGNOSIS: CP/DYSPNEA/PALPITATIONS ECHOCARDIOGRAPHIC MEASUREMENTS (adult normal given) AC root (d.<3.7cm) 3.4 cm LV Septum d (<1.2 cm> 1.5 cm Valve Excursion 2.4 cm LV Septum (systole) 1.6 cm Left Atria (s.<4.0cm> 3.6 cm LVPW d(<1.2cm) 1.3 cm RV (d.<2.3cm) 2.8 cm LVPW (sytole) 1.8 cm LV diastole(<5.6CM) 5.1 cm MV E-F(>70mm/sec) cm LV systole 3.3 cm LVOT Diameter 1.9 cm MV exc.(>10mm) cm Est.ejection fraction (50-75%) % Pericardial Effusion N DOPPLER: LVIT cm/sec A 80.0 cm/sec E 70.0 cm/sec LA cm/sec RVSP 21.0 mmHg LVOT 105 cm/sec AOP1/2T m/s Asc. Ao 103 cm/sec RVOT 46.0 cm/sec RA cm/sec PA 96.0 cm/sec AV Gradient Peak 4.2 mmHg AV Mean 2.2 mmHg AV Area 2.7 cm MV Gradient Peak 3.6 mmHg MV Mean 1.7 mmHg MV Area cm COMMENTS: Knockout Machine Operator: Yahaira NIXOE Gis Software Developer: 4 Dr. Flood TAPE# PACS DATE OF SERVICE: 03/21/2017 TRANSTHORACIC ECHOCARDIOGRAM FINDINGS: 1. Left ventricle has mild left ventricular hypertrophy and flow characteristics are consistent with diastolic dysfunction. Ejection fraction of 60% to 65% without regional wall motion abnormalities. 2. The left atrium is normal in size and normal in function. 3. The aortic valve is normal. ECHOCARDIOGRAM REPORT [id number] NIYAH EDUARDO 4. The mitral valve is normal. 5. The tricuspid valve is normal. 6. There is no pericardial effusion. 7. The IVC is normal. 8. The pulmonic valve has trace pulmonic insufficiency. 9. The right atrium has mild right atrial enlargement. 10. The right ventricle is normal in size and normal in function. CONCLUSION: The patient has evidence of mild hypertensive heart disease, otherwise normal echocardiogram. TRANSINT:[id number] Voice Confirmation ID: [id number] DOCUMENT ID: [id number] CROW FLOOD MD at 0818 CC: [id number] DICTATION DATE: 03/22/17 09 MANAGER STORAGE: 03/22/17 1048 DEP CLI 03/21/17 [id number] [place] [address]
== END | disposition home or self-care (01) ==
LOC: D.ECHO 03-16 10:05
DX: R07.9 Chest pain, unspecified (principal); R06.00 Dyspnea, unspecified; R00.2 Palpitations; I49.3 Ventricular premature depolarization

== ENCOUNTER 2020-09-04 19:02 | Inpatient (IN) | payer SELFPAY ==
[~2020-09-04] VITALS: Ht 175.3 cm; Wt 113.4 kg
[2020-09-04 20:10] LABS: BASOPHILS 0.5 % (0-2); EOSINOPHILS 1.4 % (0-7); HEMATOCRIT 56.4 % (42.0-54.0); LYMPHOCYTES 8.8 % (15-50); MCH 29.8 pg (26.0-34.0); MCHC 33.7 g/dL (31.0-37.0); MCV 88.5 fL (80.0-100.0); MEAN PLATELET VOLUME 8.2 fL (7.4-10.4); NEUTROPHILS 80.3 % (40-80); PLATELET COUNT 197 10x3/uL (130-400); RBC 6.38 10x6/uL (4.20-6.10); RDW 14.4 % (11.5-14.5); WBC 16.5 10x3/uL (4.8-10.8)
[2020-09-04 20:26] LABS: ANION GAP 13.4 mmol/L (8-16); CALCIUM 8.9 mg/dL (8.5-10.1); CARBON DIOXIDE 25.6 mmol/L (21.0-32.0); CREATININE - SERUM 1.1 mg/dL (0.6-1.3)
[2020-09-04 20:32] LABS: ALBUMIN 3.7 g/dL (3.4-5.0); BILIRUBIN - TOTAL 0.38 mg/dL (0.2-1.3)
--- NOTE | 2020-09-04 22:43 | NUR ---
zosyn infused completely at 2243. line flushed by this nurse.
--- NOTE | 2020-09-04 23:30 | NUR ---
PT BROUGHT TO FLOOR VIA WHEELCHAIR, AMBULATED TO BED WITHOUT DIFFICULTY. SPOKE WITH DEYANIRA BOONE APN ABOUT PT HISTORY OF MRSA AND ORDER RECIEVED TO PLACE PT IN CONTACT ISOLATION AT THIS TIME. PT AOX4, STATES PAIN TO RIGHT ELBOW 9/10 AT THIS TIME, DESCIBED ACHING AND BURNING. STATES HE WENT TO CLINIC TODAY AND RECIEVED SHOT OF ROCEPHIN AND BACTRIM AND TOOK ONE DOSE AT HOME BUT PAIN WAS TOO BAD AND SPIKED LOW GRADE TEMP SO HE CAME TO ER. RIGHT RIGHT ELBOW IS RED, SWOLLEN AND WARM TO TOUCH WITH SMALL AREA WITH SCAB/HEAD IN CENTER. ARM PROPPED ON PILLOWS AND PT STATES THAT HELPS IT FEEL BETTER. GAVE PT MORPHINE AT THIS TIME WELL. IV LEFT AC INFUSING NS @ 75 AND VANC BROUGHT FROM ER CONTINUED AT THIS TIME. PT PROVIDED WATER AND TURKEY SANDWICH TRAY. MED REC, ADMISSION ASSESSMENT AND HISTORY COMPLETED. PT STATES HE WEARS A CPAP AT NIGHT FOR SLEEP APNEA BUT DID NOT BRING IT WITH HIM, STATES HIS WILL BRING IT TOMORROW. PLACED PT ON 2L/NC WHILE SLEEPING. EDUCATED PT ON SCDS AND INCENTIVE SPIROMETER AT THIS TIME. PT STATED HE DID NOT WANT TO WEAR SCDS AT THIS TIME BUT WOULD TOMORROW, STATES HE IS TOO UNCOMFORTABLE AT THIS TIME. PT DENIES OTHER NEEDS AT THIS TIME. CL IN REACH, WILL CONTINUE PLAN OF CARE
[2020-09-04] MEDS ORDERED: FLOMAX0.4 MG PO (23:56)
[2020-09-04] MEDS ORDERED: MOTRIN600 MG PO (23:56)
[2020-09-04] MEDS ORDERED: DYRENIUM50 MG PO (23:57)
[2020-09-04] MEDS ORDERED: ASPIRIN325 MG PO (23:57)
[2020-09-05] MEDS ORDERED: MAXZIDE 75/501 TAB PO (02:12)
--- NOTE | 2020-09-05 04:30 | NUR ---
PT SITTING UP IN BED WITHOUT DISTRESS. PT STATES PAIN 8/10 WHILE MOVING AND 6/10 WHILE KEEPING ARM STILL. GAVE PT MORPHINE ORDERED. DENIES OTHER NEEDS AT THIS TIME. CL IN REACH
[2020-09-05 04:35] VITALS: BMI 37.0
[2020-09-05 07:30] LABS: BASOPHILS 0.7 % (0-2); EOSINOPHILS 1.5 % (0-7); HEMATOCRIT 52.2 % (42.0-54.0); HEMOGLOBIN 17.6 g/dL (13.5-17.5); LYMPHOCYTES 11.3 % (15-50); MCH 30.2 pg (26.0-34.0); MCHC 33.6 g/dL (31.0-37.0); MEAN PLATELET VOLUME 8.4 fL (7.4-10.4); MONOCYTES 9.4 % (2-11); NEUTROPHILS 77.1 % (40-80); PLATELET COUNT 177 10x3/uL (130-400); RBC 5.81 10x6/uL (4.20-6.10); RDW 14.5 % (11.5-14.5); WBC 14.9 10x3/uL (4.8-10.8)
[2020-09-05 07:40] LABS: ALBUMIN 3.2 g/dL (3.4-5.0); ANION GAP 10.2 mmol/L (8-16); BILIRUBIN - TOTAL 0.75 mg/dL (0.2-1.3); CARBON DIOXIDE 27.6 mmol/L (21.0-32.0); CREATININE - SERUM 1.3 mg/dL (0.6-1.3); MAGNESIUM - SERUM 2.2 mg/dL (1.8-2.4); POTASSIUM - SERUM 3.8 mmol/L (3.5-5.1); PROTEIN - SERUM 6.3 g/dL (6.4-8.2)
[2020-09-05 08:48] VITALS: BP 109/65
[2020-09-05 11:38] VITALS: Ht 175.3 cm; Wt 113.4 kg
[2020-09-05 11:56] VITALS: BP 121/82
[2020-09-05 16:54] VITALS: BP 132/73
[2020-09-05 20:00] VITALS: BP 129/72
--- NOTE | 2020-09-06 00:32 | NUR ---
ASSESSED AT THE BEGINNING OF THE SHIFT. PT IS ALERT AND ORIENTED, ABLE TO VERBALIZE NEEDS. AT THE BEDSIDE FOR A WHILE AND THEN PT ASKED TO GO FOR A WALK WITHOUT THE IV. HE REMAINS IN ISOLATION AND IS UP AD TATYANA TO THE BATHROOM. PAIN MEDS WERE GIVEN WITH HIS HS MEDS AND HE HAS BEEN RESTING WELL. HIS RIGHT FOREARM REMAINS RED AND PAINFUL.
[2020-09-06 05:39] LABS: BASOPHILS 0.9 % (0-2); EOSINOPHILS 2.4 % (0-7); HEMATOCRIT 50.4 % (42.0-54.0); HEMOGLOBIN 16.9 g/dL (13.5-17.5); LYMPHOCYTES 13.7 % (15-50); MCH 30.3 pg (26.0-34.0); MCHC 33.5 g/dL (31.0-37.0); MCV 90.4 fL (80.0-100.0); MEAN PLATELET VOLUME 8.3 fL (7.4-10.4); MONOCYTES 11.4 % (2-11); NEUTROPHILS 71.6 % (40-80); PLATELET COUNT 170 10x3/uL (130-400); RBC 5.58 10x6/uL (4.20-6.10); RDW 14.5 % (11.5-14.5); WBC 13.2 10x3/uL (4.8-10.8)
[2020-09-06 06:11] LABS: ALBUMIN 2.9 g/dL (3.4-5.0); ANION GAP 11.1 mmol/L (8-16); BILIRUBIN - TOTAL 0.6 mg/dL (0.2-1.3); CARBON DIOXIDE 26.9 mmol/L (21.0-32.0); CREATININE - SERUM 1.2 mg/dL (0.6-1.3); MAGNESIUM - SERUM 2.1 mg/dL (1.8-2.4); PHOSPHOROUS 3.5 mg/dL (2.5-4.9); PROTEIN - SERUM 6.1 g/dL (6.4-8.2)
--- NOTE | 2020-09-06 07:30 | NUR ---
PT CO OF PAIN 6-7 OUT OF 10 ON THE PAIN SCALE. STATES NO FURTHER NEEDS AT THIS TIME. CL IN REACH. WCTM
[2020-09-06 09:04] VITALS: BP 107/73; BP 118/67
--- NOTE | 2020-09-06 10:00 | NUR ---
PT IV THERAPY CHANGED PER EMAR. CL IN REACH. REQUESTED AND RECIEVED SOME ORANGE JUICE. PAIN IS "FINE." NO FURTHER NEEDS AT THIS TIME. WCTM
[2020-09-06 13:56] VITALS: BP 124/68
--- NOTE | 2020-09-06 17:02 | NUR ---
PT STATES PAIN. WOULD LIKE TO TAKE A NAP. CL IN REACH. STATES HE FEELS BETTER AND THAT HIS PAIN IS GOING DOWN. WCTM
[2020-09-06 18:30] VITALS: BP 126/77
[2020-09-06 20:00] VITALS: BP 148/96
--- NOTE | 2020-09-06 21:08 | NUR ---
ADMINISTERED MEDS PER ORDERS. PATIENT REINA WELL. ENCOURAGED PATIENT TO CALL WITH NEEDS.
[2020-09-07 06:23] LABS: BASOPHILS 1.2 % (0-2); EOSINOPHILS 2.7 % (0-7); HEMATOCRIT 47.4 % (42.0-54.0); MCH 30.2 pg (26.0-34.0); MCHC 33.7 g/dL (31.0-37.0); MCV 89.5 fL (80.0-100.0); MEAN PLATELET VOLUME 8.3 fL (7.4-10.4); MONOCYTES 11.4 % (2-11); NEUTROPHILS 64.7 % (40-80); PLATELET COUNT 164 10x3/uL (130-400); RDW 14.2 % (11.5-14.5); WBC 10.4 10x3/uL (4.8-10.8)
[2020-09-07 06:43] LABS: ALBUMIN 2.7 g/dL (3.4-5.0); ANION GAP 9.3 mmol/L (8-16); BILIRUBIN - TOTAL 0.32 mg/dL (0.2-1.3); CALCIUM 7.8 mg/dL (8.5-10.1); CARBON DIOXIDE 28.3 mmol/L (21.0-32.0); CREATININE - SERUM 1.1 mg/dL (0.6-1.3); PHOSPHOROUS 2.7 mg/dL (2.5-4.9); POTASSIUM - SERUM 3.6 mmol/L (3.5-5.1); PROTEIN - SERUM 5.7 g/dL (6.4-8.2)
--- NOTE | 2020-09-07 08:52 | NUR ---
PT SITTING UP ON SIDE OF BED. BREAKFAST IN ROOM. SCAB OFF OF SORE BY ELBOW. WOUND APPEARS SMALLER. REDNESS INSIDE MARKED AREAS. PT STATES HE JUST WOKE UP. PAIN LEVEL A 6 OUT OF 10 ON THE PAIN LEVEL. NO NEEDS AT THIS TIME. CL IN REACH. WCTM.
[2020-09-07 12:04] VITALS: BP 112/60
[2020-09-07 17:32] VITALS: BP 154/83
[2020-09-08 04:00] VITALS: BP 123/62
[2020-09-08 06:19] LABS: EOSINOPHILS 3.8 % (0-7); HEMATOCRIT 49.5 % (42.0-54.0); HEMOGLOBIN 16.4 g/dL (13.5-17.5); LYMPHOCYTES 25.5 % (15-50); MCH 29.8 pg (26.0-34.0); MCHC 33.2 g/dL (31.0-37.0); MEAN PLATELET VOLUME 8.4 fL (7.4-10.4); NEUTROPHILS 58.7 % (40-80); PLATELET COUNT 162 10x3/uL (130-400); RDW 14.4 % (11.5-14.5); WBC 9.2 10x3/uL (4.8-10.8)
[2020-09-08 06:40] LABS: ALBUMIN 2.9 g/dL (3.4-5.0); BILIRUBIN - TOTAL 0.5 mg/dL (0.2-1.3); CALCIUM 8.2 mg/dL (8.5-10.1); CARBON DIOXIDE 29.7 mmol/L (21.0-32.0); CREATININE - SERUM 1.1 mg/dL (0.6-1.3); PROTEIN - SERUM 5.9 g/dL (6.4-8.2)
[2020-09-08 06:44] LABS: ANION GAP 9.5 mmol/L (8-16); POTASSIUM - SERUM 4.2 mmol/L (3.5-5.1)
[2020-09-08 08:51] VITALS: BP 140/92
--- NOTE | 2020-09-08 09:00 | NUR ---
ASSESSMENT PER FLOW SHEET. PATIENT IS WITHOUT DISTRESS.ISOLATION MAINTAINED. NPO FOR POSS SURGERY TODAY.
--- NOTE | 2020-09-08 10:30 | NUR ---
CALL BACK FROM PHARMACY,SPOKE WITH ERIKA. GO AHEAD AND HANG VANC DOSE. THEY WILL RE CHECK VANC TROUGH IN AM AND ADJUST DOSE.
[2020-09-08 12:37] VITALS: BP 169/76
[2020-09-08 18:03] VITALS: BP 152/77
--- NOTE | 2020-09-08 19:06 | NUR ---
PATIENT RESTING IN BED WITH NO S/S OF DISTRESS AND DENIES NEEDS AT THIS TIME. BED IN LOWEST POSITION AND CALL LIGHT IN REACH. ENCOURAGED PATIENT TO CALL WITH NEEDS.
[2020-09-08 20:00] VITALS: BP 157/93
[2020-09-09] VITALS: BP 134/83
[2020-09-09 00:23] LABS: BILIRUBIN NEGATIVE (NEGATIVE); KETONE NEGATIVE (NEGATIVE); NITRITE NEGATIVE (NEGATIVE); UROBILINOGEN NORMAL mg/dL (< 2)
[2020-09-09 01:20] LABS: UDS - AMPHET NEGATIVE QUAL (NEGATIVE); UDS - BARB NEGATIVE QUAL (NEGATIVE); UDS - BENZO NEGATIVE QUAL (NEGATIVE); UDS - COCAINE NEGATIVE QUAL (NEGATIVE); UDS - OPIATE NEGATIVE QUAL (NEGATIVE); UDS - PCP NEGATIVE QUAL (NEGATIVE); UDS - THC NEGATIVE QUAL (NEGATIVE)
[2020-09-09 04:00] VITALS: BP 141/62
[2020-09-09 07:12] LABS: BASOPHILS 0.8 % (0-2); EOSINOPHILS 3.5 % (0-7); HEMATOCRIT 51.1 % (42.0-54.0); HEMOGLOBIN 17.2 g/dL (13.5-17.5); MCHC 33.8 g/dL (31.0-37.0); MCV 88.8 fL (80.0-100.0); MEAN PLATELET VOLUME 8.7 fL (7.4-10.4); MONOCYTES 10.3 % (2-11); NEUTROPHILS 64.4 % (40-80); PLATELET COUNT 180 10x3/uL (130-400); RBC 5.76 10x6/uL (4.20-6.10); RDW 14.2 % (11.5-14.5); WBC 10.1 10x3/uL (4.8-10.8)
[2020-09-09 07:24] LABS: ALBUMIN 2.9 g/dL (3.4-5.0); ALKALINE PHOSPHATASE 38 U/L (30-120); ALT (SGPT) 30 U/L (10-68); BILIRUBIN - TOTAL 0.36 mg/dL (0.2-1.3); CALC OSMOLALITY 278 mosm/kg (275-300); CALCIUM 8.2 mg/dL (8.5-10.1); CARBON DIOXIDE 26.7 mmol/L (21.0-32.0); CHLORIDE - SERUM 105 mmol/L (98-107); GLUCOSE 90 mg/dL (74-106); PHOSPHOROUS 3.2 mg/dL (2.5-4.9); POTASSIUM - SERUM 3.6 mmol/L (3.5-5.1); PROTEIN - SERUM 6.1 g/dL (6.4-8.2); SODIUM 140 mmol/L (136-145); UREA NITROGEN 12 mg/dL (7-18); eGFR NON AFRICAN AMERICAN 83 mL/min (90-120)
--- NOTE | 2020-09-09 08:10 | NUR ---
ASSESSMENT PER FLOW SHEET.PATIENT IS WITHOUT DISTRESS.DENIES PAIN. ISOLATION MAINTAINED.
[2020-09-09 08:36] VITALS: BP 142/72
[2020-09-09] MEDS ORDERED: CLINDAMYCIN HC300 MG PO (12:16)
--- NOTE | 2020-09-09 14:47 | NUR ---
DISCHARGE INSTRUCTIONS,STATES UNDERSTANDING. IV DCD WITH CATH TIP INTACT. LEFT UNIT FOR TRANSPORT HOME. DECLINED WHEELCHAIR
== END 2020-09-09 14:48 | disposition home or self-care (01) | DRG 603 ==
LOC: D.ER 19:02 → D.MS 21:58
PROVIDERS: Emergency Medicine; Family Medicine; ADMIT Family Medicine; ATTEND Family Medicine
DX: L03.113 Cellulitis of right upper limb (principal); D75.1 Secondary polycythemia; G47.33 Obstructive sleep apnea (adult) (pediatric); F17.200 Nicotine dependence, unspecified, uncomplicated